=== PATIENT | male | born 1980 | race African-American/Black ===

== ENCOUNTER 2017-10-26 10:30 | Inpatient (IN) | payer OTHER ==
[~2017-10-26] VITALS: Ht 185.4 cm; Wt 154.8 kg
[2017-10-26] VITALS (9 sets, daily range): BP systolic 79–105; BP diastolic 48–66
[~2017-10-26 10:30] MED LIST: ALBUTEROL SULF8.5 GM IH; ASPIR-TRIN325 M1 PO; CEFADROXIL500 MG PO; DOXYCYCLINE HY100 MG PO; GABAPENTIN100 MG PO; HYCODAN SYRUP480 ML PO; ISOSORBIDE MONO30 MG PO; LISINOPRIL-HCT1 EACH PO; MELOXICAM15 MG PO; PERCOCET 5/31 TABLET PO; PREDNISONE50 MG PO; ZANTAC150 MG PO
[2017-10-26 11:01] LABS: CARBON DIOXIDE (BICARBONATE) 18.1 MEQ/L (20-31)
[2017-10-26 11:05] LABS: INTER. NORMALIZED RATIO 1.1; PROTHROMBIN TIME 12.4 SEC (10.2-12.9)
[2017-10-26 11:09] LABS: CHLORIDE 76 mEq/L (99-109)
[2017-10-26 11:12] LABS: ANION GAP 24 MEQ/L (2-14)
[2017-10-26 11:13] LABS: TOTAL BILIRUBIN 0.5 mg/dL (0.0-1.0)
[2017-10-26 11:14] LABS: ALKALINE PHOSPHATASE 87 IU/L (3-129)
[2017-10-26 11:15] LABS: GFR ESTIMATE (CALCULATED) 18 mL/min/ (58.99-99999)
[2017-10-26 11:16] LABS: UREA NITROGEN (BUN) 47 mg/dL (9-23)
[2017-10-26 11:18] LABS: GLUCOSE 2288 mg/dL (70-99); POTASSIUM 6.7 mEq/L (3.7-5.4); SODIUM 112 mEq/L (136-147)
[2017-10-26 11:21] LABS: TROP-I INTERPRETATION NEGATIVE; TROPONIN-I < 0.01 ng/mL (0.0-0.30)
[2017-10-26 13:38] LABS: EOSINOPHIL (%) 0.1 % (0-5); HEMATOCRIT 56.1 % (38.0-50.0); IMMATURE GRANULOCYTE (%) 2.4 % (0.0-0.7); IMMATURE GRANULOCYTE COUNT 0.3 K/uL; INSTRUMENT ABS NEUTROPHIL CT 12.3 K/uL; LYMPHOCYTE COUNT 0.9 K/uL (1.0-2.8); MCH 27.6 PG (29.0-34.0); MCHC 25.8 G/DL (30.0-36.0); MCV 106.7 FL (86-99); MEAN PLAT.VOLUME 11.9 uM^3 (9.0-12.4); MONOCYTE (%) 1.5 % (3-12); MONOCYTE COUNT 0.2 K/uL (0-0.8); NEUTROPHIL (%) 89.1 % (45-76); NEUTROPHIL COUNT 12.3 K/uL (1.8-6.4); PLATELET COUNT 322 K/uL (156-360); RBC DIS.WIDTH-CV 13.5 % (11.8-14.6); RBC DIS.WIDTH-SD 54.4 % (39-53); RED BLOOD COUNT 5.26 M/uL (4.00-5.50); WHITE BLOOD COUNT 13.8 K/uL (4.1-10.2)
[2017-10-26 14:38] LABS: METH RESISTANT S AUREUS PCR NEGATIVE (NEGATIVE)
[2017-10-26 14:38] LABS: ALKALINE PHOSPHATASE 86 IU/L (3-129); ANION GAP 23 MEQ/L (2-14); CHLORIDE 77 MEQ/L (99-109); LIPASE 127 U/L (1.0-51.0); SAMPLE HEMOLYSIS CHECK 0; SAMPLE ICTERIC CHECK 0; SAMPLE LIPEMIA CHECK 0; TOTAL BILIRUBIN 0.4 MG/DL (0.0-1.0); UREA NITROGEN (BUN) 51 mg/dL (9-23)
[2017-10-26 14:42] LABS: GFR ESTIMATE (CALCULATED) 24 mL/min/ (58.99-99999); GLUCOSE 2377 mg/dL (70-99); POTASSIUM 5.2 MEQ/L (3.7-5.4); SODIUM 115 MEQ/L (136-147)
[2017-10-26 14:52] LABS: PROBE CHECK PASS; SPECIMEN PROCESSING CONTROL PASS
[2017-10-26 16:23] LABS: CARBOXY HGB 2.1 % (0-5); METHEMOGLOBIN 1.5 % (0-1.5); PCO2 49 mm Hg (35-45); PO2 161 mm Hg (80-100)
[2017-10-26 16:25] LABS: DEVICE VENT; FI02 100 %; MODE AC; SITE A LINE; pH < 6.92 (7.35-7.45)
[2017-10-26 16:26] LABS: MECHANICAL RATE 16 resp/min; PEEP 5 CM/H20; TIDAL VOLUME 500 ML; TOTAL RESP RATE 24 resp/min
[2017-10-26 16:54] LABS: INTER. NORMALIZED RATIO 1.1
[2017-10-26 17:01] LABS: ANION GAP 24 MEQ/L (2-14); CHLORIDE 82 MEQ/L (99-109); GFR ESTIMATE (CALCULATED) 23 mL/min/ (58.99-99999); GLUCOSE 2191 mg/dL (70-99); POTASSIUM 5.7 MEQ/L (3.7-5.4); SAMPLE HEMOLYSIS CHECK 1; SAMPLE ICTERIC CHECK 0; SAMPLE LIPEMIA CHECK 0; SODIUM 119 MEQ/L (136-147); UREA NITROGEN (BUN) 50 mg/dL (9-23)
[2017-10-26 19:27] LABS: GLUCOSE 1876 mg/dL (70-99)
[2017-10-26 20:39] LABS: ANION GAP 22 MEQ/L (2-14); GFR ESTIMATE (CALCULATED) 20 mL/min/ (58.99-99999); POTASSIUM 5.1 MEQ/L (3.7-5.4); SAMPLE HEMOLYSIS CHECK 0; SAMPLE ICTERIC CHECK 0; SAMPLE LIPEMIA CHECK 0; UREA NITROGEN (BUN) 45 mg/dL (9-23)
[2017-10-26 20:47] LABS: CHLORIDE 91 MEQ/L (99-109); GLUCOSE 1804 mg/dL (70-99); SODIUM 126 MEQ/L (136-147)
[2017-10-26 22:38] LABS: GLUCOSE 1669 mg/dL (70-99)
[2017-10-27 00:28] LABS: POTASSIUM 4.5 mEq/L (3.7-5.4); SODIUM 132 mEq/L (136-147)
[2017-10-27 00:32] LABS: ANION GAP 26 MEQ/L (2-14)
[2017-10-27 00:35] LABS: UREA NITROGEN (BUN) 41 mg/dL (9-23)
[2017-10-27 00:39] LABS: CHLORIDE 97 mEq/L (99-109); GFR ESTIMATE (CALCULATED) 15 mL/min/ (58.99-99999); GLUCOSE 1422 mg/dL (70-99)
[2017-10-27 03:34] LABS: GLUCOSE 1282 mg/dL (70-99)
== END 2017-10-27 04:35 | DRG 871 ==
LOC: EME 10:30 → EDOF 11:49 → ENRESERV 12:05 → 4WEST 12:35
PROVIDERS: Emergency Medicine
DX: A41.9 Sepsis, unspecified organism (principal); K55.029 Acute infarction of small intestine, extent unspecified; E11.10 Type 2 diabetes mellitus with ketoacidosis without coma; E66.01 Morbid (severe) obesity due to excess calories; I10 Essential (primary) hypertension; K63.89 Other specified diseases of intestine; F17.200 Nicotine dependence, unspecified, uncomplicated; R68.2 Dry mouth, unspecified; I95.9 Hypotension, unspecified; J45.909 Unspecified asthma, uncomplicated; K21.9 Gastro-esophageal reflux disease without esophagitis; N17.9 Acute kidney failure, unspecified; E87.5 Hyperkalemia; R35.8 Other polyuria; Z51.5 Encounter for palliative care
CPT/HCPCS: 36600; 71010; 74176; 80048; 80048 91; 80053; 81003; 82010; 82803; 83036; 83605; 83690; 83735; 84100; 84484; 84999; 85025; 85025 91; 85610; 85651; 85730; 86850; 86900; 86901; 87040; 87070; 87205; 87641; 93005; 94002; C1751; C1894; J0692; J1644; J1815; J2250; J2270; J2405; J7030; J7040; J7050; J7070; J7120; S0028